=== PATIENT | female | born 1980 | race Caucasian/White ===

== ENCOUNTER 2018-04-30 19:35 | Emergency (ER) | payer MEDICAID, OTHER ==
[~2018-04-30] VITALS: Ht 160 cm; Wt 59.1 kg
[~2018-04-30 19:35] MED LIST: CLIN150C8 PO; CLIN300C37 PO; NO HOME MEDS
[2018-04-30 19:43] VITALS: BP 122/74
[2018-04-30] MEDS ORDERED: piperacillin/tazo 3.375gm/50ml 50 ML IV ONE (20:15)
[2018-04-30] MEDS ORDERED: morphine 4 MG/ML inj SYRINge IV ONE (20:15)
== END 2018-04-30 21:29 | disposition left against medical advice (07) ==
LOC: ER 19:36
DX: L02.415 Cutaneous abscess of right lower limb (principal); L02.416 Cutaneous abscess of left lower limb; J45.909 Unspecified asthma, uncomplicated; Z90.49 Acquired absence of other specified parts of digestive tract; Z98.890 Other specified postprocedural states; F11.90 Opioid use, unspecified, uncomplicated; Z88.5 Allergy status to narcotic agent; Z79.899 Other long term (current) drug therapy; Z56.0 Unemployment, unspecified
CPT/HCPCS: 71045; 99284

== ENCOUNTER 2018-07-14 15:23 | Emergency (ER) | payer MEDICAID ==
[~2018-07-14] VITALS: Ht 160 cm; Wt 62.1 kg
[2018-07-14] MEDS ORDERED: normal saline 1000ML IV soln IV ONE (17:30)
[2018-07-14] MEDS ORDERED: iohexol 300mg/ml 100ml inj. ONE (17:47)
[2018-07-14 18:20] VITALS: BP 115/67
[2018-07-14] MEDS ORDERED: CefTRIAXone/D5W-Rocephin 1gm 50 ML IV ONE (19:00)
[2018-07-14] MEDS ORDERED: clindamycin 600mg/D5W 50ml 50 ML IV ONE (19:00)
[2018-07-14 19:41] LABS: CLARITY,URINE CLEAR (Clear); COLOR,URINE YELLOW (Yellow); GLUCOSE, URINE NEGATIVE (Neg); KETONES,URINE NEGATIVE (Neg); LEUKOCYTE ESTERASE ,URINE NEGATIVE (Neg); NITRITES, URINE NEGATIVE (Neg); OCCULT BLOOD,URINE TRACE-INTACT (Neg); PROTEIN,URINE NEGATIVE (Neg); UROBILINOGEN,URINE 0.2 E.U/dL (0.2-1.0)
[2018-07-14 19:42] LABS: UA COLLECTION TYPE CLN CATCH MIDSTREAM
[2018-07-14 19:49] LABS: WBC,URINE NONE SEEN /HPF (0-4)
[2018-07-14 19:50] LABS: BACTERIA,URINE FEW /HPF (Neg); MUCUS STRANDS FEW /LPF (Neg); RBC,URINE 0-2 /HPF (0-2); SQUAMOUS EPITHELIAL CELL,UR FEW /LPF (FEW)
[2018-07-14 19:57] LABS: URINE HCG NEGATIVE (NEG)
== END 2018-07-14 19:28 | disposition left against medical advice (07) ==
LOC: ER 15:26
DX: N73.8 Other specified female pelvic inflammatory diseases (principal); Z86.14 Personal history of Methicillin resistant Staphylococcus aureus infection; J45.909 Unspecified asthma, uncomplicated; Z90.49 Acquired absence of other specified parts of digestive tract; Z88.5 Allergy status to narcotic agent; Z79.2 Long term (current) use of antibiotics; Z56.0 Unemployment, unspecified
CPT/HCPCS: 81001; 81025; 99284; J7030; Q9967

== ENCOUNTER 2019-08-25 19:30 | Emergency (ER) | payer MEDICAID ==
[~2019-08-25] VITALS: Ht 160 cm; Wt 65.9 kg
[~2019-08-25 19:30] MED LIST changes: +CLIN-117 PO; -CLIN300C37 PO
[2019-08-25 19:41] VITALS: BP 121/73
[2019-08-25] MEDS ORDERED: DOXY100C43 PO (20:14)
== END 2019-08-25 20:40 | disposition home or self-care (01) ==
LOC: ER 19:30
DX: S31.819A Unspecified open wound of right buttock, initial encounter (principal); J45.909 Unspecified asthma, uncomplicated; F11.90 Opioid use, unspecified, uncomplicated; Z86.14 Personal history of Methicillin resistant Staphylococcus aureus infection; Z86.19 Personal history of other infectious and parasitic diseases; Z86.69 Personal history of other diseases of the nervous system and sense organs; Z90.49 Acquired absence of other specified parts of digestive tract; Z98.890 Other specified postprocedural states; Z98.51 Tubal ligation status; Z56.0 Unemployment, unspecified; Z88.5 Allergy status to narcotic agent; Z79.899 Other long term (current) drug therapy; X58.XXXA Exposure to other specified factors, initial encounter; Y93.89 Activity, other specified; Y92.89 Other specified places as the place of occurrence of the external cause; Y99.8 Other external cause status
CPT/HCPCS: 99283

== ENCOUNTER 2019-11-23 11:34 | Outpatient (CLI) | payer MEDICAID | END 2019-11-23 23:59 | disposition home or self-care (01) | LOC: RAD 11:34 | PROVIDERS: ATTEND Obstetrics & Gynecology | DX: F11.20 Opioid dependence, uncomplicated (principal) | CPT/HCPCS: 93005 ==

== ENCOUNTER 2023-08-30 12:37 | Emergency (ER) | payer MEDICAID ==
[~2023-08-30] VITALS: Ht 160 cm; Wt 72.0 kg
[~2023-08-30 12:37] MED LIST changes: -CLIN-117 PO; +CLIN-214 PO; -CLIN150C8 PO; +[UNRECOGNIZED DRUG - CODE] PO
[2023-08-30] MEDS ORDERED: LIDOCAINE 1%/EPI 1:100,000 inj. 10 ML multi-dose vial IJ ONE (14:10)
[2023-08-30 15:34] VITALS: BP 124/87; PULSE 78; RESP 16; TEMP 97.3; O2SAT 98
[2023-08-30] MEDS ORDERED: CefTRIAXone 1000mg IM Kit (w/lidocaine diluent) IM ONE (15:45)
[2023-08-30] MEDS ORDERED: SULF1TAB49 PO (15:49)
[2023-08-30] MEDS ORDERED: CEPH-585 PO (15:49)
== END 2023-08-30 16:10 | disposition home or self-care (01) ==
LOC: ER 12:38
DX: L02.411 Cutaneous abscess of right axilla (principal); J45.909 Unspecified asthma, uncomplicated; F17.210 Nicotine dependence, cigarettes, uncomplicated; Z86.14 Personal history of Methicillin resistant Staphylococcus aureus infection; Z88.5 Allergy status to narcotic agent; Z88.8 Allergy status to other drugs, medicaments and biological substances
CPT/HCPCS: 96372; 99283; J0696; 12002; A6449